=== PATIENT | male | born 1955 | race Caucasian/White ===

== ENCOUNTER 2018-04-09 02:55 | Inpatient (IN) | payer MEDICARE, OTHER ==
[~2018-04-09] VITALS: Ht 177.8 cm; Wt 102.1 kg
--- NOTE | 2018-04-09 03:05 | NUR ---
PT AA/OX4 FROM HOME COMPLAINING OF SOB AND RT SIDE BODY PAIN X4 DAYS. POSITIVE TRIPODING. SKIN PINK, WARM, DRY. NO NASAL FLARING. EQUAL ROUGH ROUNDER MACHINE. EQUAL FACIAL SYMMETRY. ROOM AIR SAT 91%. APPLIED O2 2LPM VIA NC. ALL OTHER VSS. WILL CONTINUE TO MONITOR.
[2018-04-09] MEDS ORDERED: MORPHINE SULFATE INJ 2 MG/ML DISP.SYRIN IV ONE (03:30)
[2018-04-09] MEDS ORDERED: ONDANSETRON HCL/PF 4 MG/2 ML VIAL IVP ONE (03:30)
[2018-04-09] MEDS ORDERED: ONDANSETRON HCL/PF 4 MG/2 ML VIAL ONE (03:36)
[2018-04-09] MEDS ORDERED: MORPHINE SULFATE INJ 4 MG/ML DISP.SYRIN ONE (03:36)
[2018-04-09 03:37] LABS: BASOPHILS % (AUTO) 0.3 % (0.0-2.0); EOSINOPHILS % (AUTO) 1.3 % (0.0-6.0); HEMATOCRIT 41 % (39-51); HEMOGLOBIN 13.7 g/dL (13.5-17.5); LYMPHOCYTES # (AUTO) 2.2 /CMM (0.8-4.8); LYMPHOCYTES % (AUTO) 17.7 % (20.0-44.0); MEAN CORPUSCULAR HEMOGLOBIN 35 PG (26.0-33.0); MEAN CORPUSCULAR HGB CONC 33 g/dl (31.0-36.0); MEAN CORPUSCULAR VOLUME 104 fL (80-96); MONOCYTES # (AUTO) 0.6 /CMM (0.1-1.30); MONOCYTES % (AUTO) 5.3 % (2.0-12.0); NEUTROPHILS # (AUTO) 9.2 /CMM (1.8-8.9); NEUTROPHILS % (AUTO) 75.4 % (43.0-81.0); PLATELET COUNT (AUTO) 250 /CMM (150-450); RDW COEFFICIENT OF VARIATION 13.1 (11.5-15.0); RED BLOOD CELL COUNT(AUTO) 3.97 MIL/uL (4.5-6.0); WHITE BLOOD COUNT (AUTO) 12.2 K/uL (4.3-11.0)
[2018-04-09 03:51] LABS: CALCIUM, SERUM 8.6 mg/dL (8.5-10.1); CARBON DIOXIDE 23 mmol/L (21-32); CHLORIDE 103 mmol/L (98-107); CREATININE 0.9 mg/dL (0.6-1.3); GLUCOSE 142 mg/dL (74-106); POTASSIUM 3.8 mmol/L (3.5-5.1); SODIUM SERUM 137 mmol/L (136-145); UREA NITROGEN, BLOOD 21 mg/dL (7-18)
[2018-04-09 03:59] LABS: TROPONIN I < 0.017 ng/mL (0.00-0.056)
[2018-04-09 04:04] LABS: B-TYPE NATRIURETIC PEPTIDE 124 PG/ML (0-125)
[2018-04-09 04:10] LABS: INR 1.03 (0.87-1.13)
[2018-04-09] MEDS ORDERED: CEFTRIAXONE 1 G VIAL ONE (04:14)
[2018-04-09] MEDS ORDERED: AZITHROMYCIN 500 MG VIAL ONE (04:15)
[2018-04-09] MEDS ORDERED: IPRATROPIUM NEB FS 0.5 MG/2.5 ML AMPUL.NEB NEB SCH (04:30)
[2018-04-09] MEDS ORDERED: Z GUARD REMEDY 2 OZ OINT TP PRN (04:30)
[2018-04-09] MEDS ORDERED: AZITHROMYCIN 500 MG in IV D5W 250 ML IV ONE (04:30)
[2018-04-09] MEDS ORDERED: DEXAMETHASONE SOD PHOSPHATE 10 MG/ML VIAL IV ONE (04:30)
[2018-04-09] MEDS ORDERED: ONDANSETRON HCL/PF 4 MG/2 ML VIAL IVP PRN (04:30)
[2018-04-09] MEDS ORDERED: ALBUTEROL FS 2.5 MG/0.5 ML VIAL.NEB NEB SCH (04:30)
[2018-04-09] MEDS ORDERED: MAGNESIUM HYDROXIDE 30 ML UDC PO PRN (04:30)
[2018-04-09] MEDS ORDERED: CEFTRIAXONE 1GM BAG (ER ONLY) 1 GM/50 ML PIGGYBACK IV ONE (04:30)
[2018-04-09] MEDS ORDERED: ACETAMINOPHEN 325 MG TABLET PO PRN (04:30)
--- NOTE | 2018-04-09 04:43 | NUR ---
REPORT GIVEN TO ANDRÉS MAY.
[2018-04-09] MEDS ORDERED: ENOXAPARIN SODIUM 40 MG/0.4 ML DISP.SYRIN SQ SCH (05:00)
[2018-04-09] MEDS ORDERED: MORPHINE SULFATE INJ 2 MG/ML DISP.SYRIN ONE (05:04)
[2018-04-09 05:15] VITALS: BP 129/73
--- NOTE | 2018-04-09 05:15 | NUR ---
GOVERNMENT AFFAIRS FELLOW ADMITTING NOTES RECEIVED PATIENT VIA [place], ALERT AND ORIENTED X 4, ABLE TO MAKE NEEDS KNOWN. UNABLE TO LIE FLAT AND NOTED WITH SOB ON EXERTION. 02 VIA NC ON 2 L 02 SAT 93%. PATIENT PREFERS TO SIT ON EDGE OF BED FOR RELIEF WHEN SITTING ON EDGE RESPIRATIONS ARE EVEN, PATIENT COMPLAINT OF PAIN TO RIGHT SIDE OF LUNG AREA, BUT WHEN SITTING UP HAS RELIEF. IV SITE TO LEFT HAND #18 G INTACT AND PATENT, NO REDNESS, NO INFILTRATION PRESENT. ATB IV ZITHROMAX CONTINUED TO BE GIVEN AND RUNNING AT THIS TIME. BODY ASSESSMENT DONE SKIN INTACT, BELONGINGS LIST DONE , TOOK BELONGINGS HOME SO PATIENT IS LEFT WITH NO BELONGINGS. MF AWARE OF ADMISSION WILL CONTINUE TO FOLLOW ORDERED. Addendum: 04/09/18 at 0744 by YADIRA MYERS RN SOUND EFFECTS PERSON PLACE SR [id number]
--- NOTE | 2018-04-09 05:21 | NUR ---
PT TRANSP TO TELE UNIT 315 STABLE CONDITION. VSS. NAD
[2018-04-09 05:30] VITALS: BP 129/73
[2018-04-09] MEDS ORDERED: MORPHINE SULFATE INJ 2 MG/ML DISP.SYRIN IV PRN (05:30)
[2018-04-09] MEDS: AZITHROMYCIN 500 MG in IV D5W 250 ML IV SCH (05:47)
[2018-04-09] MEDS: IV NS 0.9% 1,000 ML IV PRN ×2 (06:48→22:22)
[2018-04-09 07:05] LABS: BASOPHILS % (AUTO) 0.1 % (0.0-2.0); EOSINOPHILS % (AUTO) 0.7 % (0.0-6.0); HEMATOCRIT 40 % (39-51); HEMOGLOBIN 13.5 g/dL (13.5-17.5); LYMPHOCYTES # (AUTO) 1.5 /CMM (0.8-4.8); LYMPHOCYTES % (AUTO) 15.1 % (20.0-44.0); MEAN CORPUSCULAR HEMOGLOBIN 35 PG (26.0-33.0); MEAN CORPUSCULAR HGB CONC 34 g/dl (31.0-36.0); MEAN CORPUSCULAR VOLUME 104 fL (80-96); MONOCYTES # (AUTO) 0.7 /CMM (0.1-1.30); MONOCYTES % (AUTO) 7.1 % (2.0-12.0); NEUTROPHILS # (AUTO) 7.7 /CMM (1.8-8.9); PLATELET COUNT (AUTO) 247 /CMM (150-450); RDW COEFFICIENT OF VARIATION 13.2 (11.5-15.0); RED BLOOD CELL COUNT(AUTO) 3.86 MIL/uL (4.5-6.0)
--- NOTE | 2018-04-09 07:20 | NUR ---
TOOL LAPPER HAND CLOSING NOTES PATIENT CURRENTLY REMAINS COMFORTABLE THIS TIME, NOT REQUESTING FOR PAIN MEDICATION AT THIS TIME, PATIENT HAD RELIEF WHEN SITING ON EDGE OF BED, CURRENTLY SITTING ON EDGE OF BED, WITH CALL LIGHT KEPT WITHIN REACH, PATIENT IS ALERT AND ORIENTED X 4 ABLE TO FOLLOW DIRECTION, SAFETY PRECAUTIONS IN PLACE. IV SITE TO LEFT HAND INTACT AND PATENT, IVF FLUID RUNNING ORDERED. PATIENT REMAINS COMFORTABLE AT THIS TIME, ALL NEEDS ATTENDED,WILL ENDORSE TO NEXT SHIFT.
[2018-04-09 07:29] LABS: ALANINE AMINOTRANSFERASE 15 U/L (12-78); ALBUMIN 3.3 g/dL (3.4-5.0); ALKALINE PHOSPHATASE 49 U/L (46-116); ASPARTATE AMINOTRANSFERASE 17 U/L (15-37); BILIRUBIN,TOTAL 0.5 mg/dL (0.2-1.0); CALCIUM, SERUM 8.4 mg/dL (8.5-10.1); CARBON DIOXIDE 21 mmol/L (21-32); CHLORIDE 103 mmol/L (98-107); CREATININE 0.9 mg/dL (0.6-1.3); GLUCOSE 125 mg/dL (74-106); MAGNESIUM 1.8 mg/dL (1.8-2.4); PHOSPHORUS 2.8 mg/dL (2.5-4.9); POTASSIUM 4.1 mmol/L (3.5-5.1); SODIUM SERUM 136 mmol/L (136-145); TOTAL PROTEIN, SERUM 7.4 g/dL (6.4-8.2); UREA NITROGEN, BLOOD 19 mg/dL (7-18)
--- NOTE | 2018-04-09 07:30 | NUR ---
RN MS OPENING NOTES PT RECEIVED SITTING UP ON THE SIDE OF BED LEANING AGAINST TABLE, BED IN LOWEST AND LOCKED POSITION A/O X3, VERBALLY RESPONSIVE, ON TELE MONITOR, NO SIGNS OF DISTRESS NOTED, NO SIGNS OF PAIN, IV PATENT AND INTACT, CALL LIGHT WITHIN REACH, WILL CONTINUE TO MONITOR.
[2018-04-09 07:33] LABS: IRON, SERUM 29 ug/dl (50-175); TOTAL IRON BINDING CAPACITY 241 ug/dl (250-450)
[2018-04-09 07:34] LABS: CHOLESTEROL 148 mg/dL (<200); HDL CHOLESTEROL 35 mg/dL (40-60); LDL 87 mg/dL (0-99); THYROID STIMULATING HORMONE 1.327 uIU/mL (0.358-3.74); TRIGLYCERIDES 155 mg/dL (30-150); TROPONIN I < 0.017 ng/mL (0.00-0.056)
[2018-04-09] MEDS: ALBUTEROL FS 2.5 MG/0.5 ML VIAL.NEB NEB SCH ×5 (07:37→22:42)
[2018-04-09] MEDS: IPRATROPIUM NEB FS 0.5 MG/2.5 ML AMPUL.NEB NEB SCH ×5 (07:37→22:42)
[2018-04-09 08:00] VITALS: BP 106/65
[2018-04-09] MEDS: ASPIRIN EC 81 MG TABLET.DR PO SCH (08:12)
[2018-04-09] MEDS: PANTOPRAZOLE 40 MG TABLET.DR PO SCH (08:12)
[2018-04-09] MEDS: HYDROCODONE/APAP 5/325MG 1 EACH TABLET PO PRN ×3 (08:31→19:48)
[2018-04-09 16:00] VITALS: BP 110/59
--- NOTE | 2018-04-09 18:00 | NUR ---
RN CLOSING NOTES PT SITTING IN BED AT LOWEST AND LOCKED POSITION, NO S/S OF DISTRESS OR PAIN NOTED AT THIS TIME, PT IS A/O X4, VS STABLE, SAFETY PRECAUTIONS IN PLACE, IV SITE PATENT AND INTACT, IVF RUNNING ORDERED, FAMILY AT BEDSIDE, CALL LIGHT WITHIN REACH AND WILL CONTINUE TO MONITOR AND HANDOFF TO NIGHT NURSE.
--- NOTE | 2018-04-09 19:30 | NUR ---
RN MS OPENING NOTES RECEIVED PATIENT SITTING IN CHAIR BY BEDSIDE,AWAKE ALERT AND ORIENTED X 4, RESPIRATIONS EVEN AND UNLABORED WITH EQUAL RISE AND FALL OF CHEST. CALL LIGHT KEPT WITHIN REACH. PER PATIENT SITTING UP IN CHAIR PROVIDES THE MOST RELIEF. NO SOB PRESENT AT THIS TIME. PER PATIENT REMAINS COMFORTABLE AT THIS TIME MADE AWARE IF IN PAIN MEDICATION IS AVAILABLE. MADE AWARE OF IMPORTANCE OF 02 , CURRENTLY ON 02 2L VIA NC. IV SITE TO LEFT HAND #18 INTACT AND PATENT , NO REDNESS NO INFILTRATION PRESENT IVF RUNNING ORDERED. FLUIDS OFFERED TOLERATED, ALL NEEDS ATTENDED AT THIS TIME, ORIENTED TO STAFF AND CALL LIGHT, REMINDED PATIENT TO UTILIZE CALL LIGHT FOR ASSISTANCE WHEN GETTING UP. ALL NEEDS ATTENDED AT THIS TIME.
--- NOTE | 2018-04-09 19:35 | NUR ---
Patient is alert,lives locally with family. He is ambulatory and independent with adl's. He has good family support. No dc planning needs identified at this time. Family will provide ride when discharge. Addendum: 04/09/18 at 1939 by DAVID MARSHALL RN Amended: Links added.
--- NOTE | 2018-04-09 19:48 | NUR ---
RN MS NOTES PATIENT COMPLAINT OF PAIN TO RIGHT SIDE LUNG TORSO AREA COMPLAINT OF SUDDEN PAIN DURING SUDDEN MOVEMENTS 01/24 REQUESTING FOR PAIN MEDICATION , PRN NORCO OFFERED, AGREED TO TAKE,PRN GIVEN ORDERED, VITAL SIGNS ASSESSED B/P WITHIN NORMAL LIMITS 123/66. HR 90. 02 SAT 91-93% RESP.18 ON 02 2 L. NO SOB PRESENT AT THIS TIME. WILL CONTINUE TO MONITOR EFFECTIVENESS OF PAIN MEDICATION.
[2018-04-09 20:00] VITALS: BP 123/66
--- NOTE | 2018-04-09 20:00 | NUR ---
RN MS NOTES 02 SAT CURRENTLY AT 97%.
[2018-04-10] MEDS: HYDROCODONE/APAP 5/325MG 1 EACH TABLET PO PRN (02:26)
--- NOTE | 2018-04-10 02:30 | NUR ---
RN MS NOTES PATIENT COMPLAINT OF PAIN 10/10 TO RIGHT SIDE TORSO AREA, REQUESTING FOR PAIN MEDICATION. PRN NORCO GIVEN ORDERED, PATIENT CURRENTLY SITTING ON EDGE OF BED THIS PROVIDES THE MOST RELIEF, LOW BED AND LOCKED, CALL LIGHT KEPT WITHIN REACH, WILL CONTINUE TO MONITOR FOR EFFECTIVENESS.
[2018-04-10] MEDS: IPRATROPIUM NEB FS 0.5 MG/2.5 ML AMPUL.NEB NEB SCH ×6 (03:26→23:55)
[2018-04-10] MEDS: ALBUTEROL FS 2.5 MG/0.5 ML VIAL.NEB NEB SCH ×6 (03:26→23:55)
[2018-04-10] MEDS: AZITHROMYCIN 500 MG in IV D5W 250 ML IV SCH (04:09)
[2018-04-10] MEDS: CEFTRIAXONE 1 G in IV D5W 50 ML IV SCH (05:32)
[2018-04-10 06:13] LABS: CREATININE 0.9 mg/dL (0.6-1.3); PHOSPHORUS 3.2 mg/dL (2.5-4.9); POTASSIUM 4.3 mmol/L (3.5-5.1)
[2018-04-10 06:37] LABS: BASOPHILS % (AUTO) 0.3 % (0.0-2.0); EOSINOPHILS % (AUTO) 1.6 % (0.0-6.0); HEMATOCRIT 38 % (39-51); HEMOGLOBIN 12.8 g/dL (13.5-17.5); LYMPHOCYTES # (AUTO) 1.9 /CMM (0.8-4.8); LYMPHOCYTES % (AUTO) 22.5 % (20.0-44.0); MEAN CORPUSCULAR HEMOGLOBIN 35 PG (26.0-33.0); MEAN CORPUSCULAR HGB CONC 34 g/dl (31.0-36.0); MEAN CORPUSCULAR VOLUME 105 fL (80-96); MONOCYTES # (AUTO) 0.7 /CMM (0.1-1.30); MONOCYTES % (AUTO) 7.9 % (2.0-12.0); NEUTROPHILS # (AUTO) 5.8 /CMM (1.8-8.9); NEUTROPHILS % (AUTO) 67.7 % (43.0-81.0); PLATELET COUNT (AUTO) 225 /CMM (150-450); RED BLOOD CELL COUNT(AUTO) 3.65 MIL/uL (4.5-6.0); WHITE BLOOD COUNT (AUTO) 8.6 K/uL (4.3-11.0)
--- NOTE | 2018-04-10 06:40 | NUR ---
RN MS CLOSING NOTES PATIENT IS AWAKE ALERT AND ORIENTED X4 STATES HE FEELS BETTER THAN YESTERDAY, PATIENT WAS ABLE TO SLEEP LYING DOWN, BUT ALSO HAS RELIEF SITTING ON CHAIR OR EDGE OF BED, NO RESPIRATORY DISTRESS PRESENT, CURRENTLY ON 02 2L VIA NC AND TOLERATING WELL. PAIN MEDICATION WAS EFFECTIVE WHEN GIVEN, ANTIBIOTICS GIVEN ORDERED, IVF RUNNING ORDERED, IV SITE TO LEFT HAND INTACT AND PATENT, NO REDNESS, NO INFILTRATION PRESENT. ALL NEEDS ATTENDED, PATIENT REMAINS COMFORTABLE AT THIS TIME, SAFETY PRECAUTIONS IN PLACE, CALL LIGHT KEPT WITHIN REACH, TOILETING OFFERED, WILL CONTINUE TO MONITOR AND ENDORSE TO NEXT SHIFT.
--- NOTE | 2018-04-10 07:30 | NUR ---
RN OPENING NOTES PATIENT IS IN BED AT LOWEST AND LOCKED POSITION SIDE RAILS UP X2, A/O X4, NO S/S OF DISTRESS OR PAIN NOTED, VS STABLE, MENTIONED HE FEELS BETTER THAT YESTERDAY, FEELS BETTER WHEN SITTING UP AND LEANING AGAINST DESK, ON O2 VIA NASAL CANNULA 2L, IV PATENT AND INTACT WITH IVF RUNNING ORDERED, COMFORTABLE AT THIS TIME, CALL LIGHT WITHIN REACH AND WILL CONTINUE TO MONITOR
[2018-04-10 08:00] VITALS: BP 109/69
[2018-04-10] MEDS: PANTOPRAZOLE 40 MG TABLET.DR PO SCH (08:14)
[2018-04-10] MEDS: ASPIRIN EC 81 MG TABLET.DR PO SCH (08:14)
[2018-04-10] MEDS: ENOXAPARIN SODIUM 40 MG/0.4 ML DISP.SYRIN SQ SCH (08:16)
[2018-04-10 16:00] VITALS: BP 130/69
[2018-04-10] MEDS ORDERED: SOD FERRIC GLUC 125 MG in IV NS 0.9% 100 ML IV SCH (16:30)
[2018-04-10] MEDS: MULTIVITAMINS,THERAGRAN 1 UDTAB TABLET PO SCH (16:45)
[2018-04-10] MEDS: LACTOBACILLUS RHAMNOSUS GG 1 EACH CAP.SPRINK PO SCH (16:45)
--- NOTE | 2018-04-10 18:00 | NUR ---
RN CLOSING NOTES PT SITTING UP ON THE EDGE OF THE BED AT LOWEST AND LOCKED POSITION WITH SIDE RAILS UP X2, A/O X4, NO S/S OF DISTRESS OR PAIN NOTED, VS STABLE, LEFT HAND IV PATENT AND INTACT RUNNING IVF ORDERED, CURRENTLY ON O2 2L VIA NASAL CANNULA, PATIENT NEEDS ATTEND, CALL LIGHT WITHIN REACH AND WILL ENDORSE TO NIGHT NURSE
--- NOTE | 2018-04-10 19:15 | NUR ---
PATIENT IS IN BED, A/O X4, NO S/S OF DISTRESS OR PAIN NOTED, VS STABLE, MENTIONED HE FEELS BETTER THAT YESTERDAY, FEELS BETTER WHEN SITTING UP, ON O2 VIA NASAL CANNULA 2L,IV PATENT AND INTACT H/L, CALL LIGHT WITHIN REACH. WILL CONTINUE TO MONITOR
[2018-04-10 20:00] VITALS: BP 134/72
[2018-04-11] MEDS: IPRATROPIUM NEB FS 0.5 MG/2.5 ML AMPUL.NEB NEB SCH ×4 (03:33→15:31)
[2018-04-11] MEDS: ALBUTEROL FS 2.5 MG/0.5 ML VIAL.NEB NEB SCH ×4 (03:33→15:31)
[2018-04-11] MEDS: CEFTRIAXONE 1 G in IV D5W 50 ML IV SCH (05:11)
--- NOTE | 2018-04-11 07:09 | NUR ---
RN CLOSING NOTES PT IN BED. BED IN LOWEST AND LOCKED POSITION WITH SIDE RAILS UP X2, PT A/O X4, NO S/S OF DISTRESS OR PAIN NOTED, VS STABLE, LEFT HAND IV PATENT AND INTACT H/P, PATIENT NEEDS ATTEND, CALL LIGHT WITHIN REACH. WILL ENDORSE TO NEXT SIFT NURSE FOR JESIKA.
[2018-04-11 07:10] LABS: BASOPHILS % (AUTO) 0.2 % (0.0-2.0); EOSINOPHILS % (AUTO) 2.1 % (0.0-6.0); HEMATOCRIT 35 % (39-51); LYMPHOCYTES # (AUTO) 1.8 /CMM (0.8-4.8); LYMPHOCYTES % (AUTO) 19.8 % (20.0-44.0); MEAN CORPUSCULAR HEMOGLOBIN 35 PG (26.0-33.0); MEAN CORPUSCULAR HGB CONC 34 g/dl (31.0-36.0); MEAN CORPUSCULAR VOLUME 104 fL (80-96); MONOCYTES % (AUTO) 11.1 % (2.0-12.0); NEUTROPHILS # (AUTO) 5.9 /CMM (1.8-8.9); NEUTROPHILS % (AUTO) 66.8 % (43.0-81.0); PLATELET COUNT (AUTO) 253 /CMM (150-450); RDW COEFFICIENT OF VARIATION 13.2 (11.5-15.0); WHITE BLOOD COUNT (AUTO) 8.9 K/uL (4.3-11.0)
--- NOTE | 2018-04-11 07:25 | NUR ---
RN OPENING NOTES RECEIVED PT. IN BED SITTING UP. A&OX4. BREATHING UNLABORED, AND EVENLY ON ROOM AIR. IV ACCESS IS INTACT AND PATENT NO SOB. NO S/S OF ACUTE DISTRESS. PT. DENIES PAIN. BED IS IN LOWEST, AND LOCKED POSITION. 2 SIDE RAILS UP, AND INSTRUCTED PT. TO USE CALL LIGHT FOR ASSISTANCE. ALL NEEDS MET. WILL CONTINUE TO ASSESS AND MONITOR.
[2018-04-11 07:27] LABS: CALCIUM, SERUM 8.9 mg/dL (8.5-10.1); CREATININE 0.8 mg/dL (0.6-1.3); MAGNESIUM 2.2 mg/dL (1.8-2.4); PHOSPHORUS 3.3 mg/dL (2.5-4.9); POTASSIUM 3.9 mmol/L (3.5-5.1)
[2018-04-11 08:00] VITALS: BP 124/68
[2018-04-11] MEDS: PANTOPRAZOLE 40 MG TABLET.DR PO SCH (08:14)
[2018-04-11] MEDS: ASPIRIN EC 81 MG TABLET.DR PO SCH (08:15)
[2018-04-11] MEDS: LACTOBACILLUS RHAMNOSUS GG 1 EACH CAP.SPRINK PO SCH (08:16)
[2018-04-11] MEDS: MULTIVITAMINS,THERAGRAN 1 UDTAB TABLET PO SCH (08:16)
[2018-04-11] MEDS: ENOXAPARIN SODIUM 40 MG/0.4 ML DISP.SYRIN SQ SCH (08:23)
[2018-04-11] MEDS ORDERED: AZITHROMYCIN 250 MG TABLET PO SCH (09:00)
[2018-04-11] MEDS ORDERED: LEVO750T21 PO (15:33)
--- NOTE | 2018-04-11 17:29 | NUR ---
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 PT. LEFT IN PRIVATE CAR WITH . DISCHARGE INSTRUCTIONS WERE PROVIDED WITH EDUCATION. PT. SIGNED DISCHARGE PAPERS. BELONGINGS LIST WAS CHECKED AND SIGNED. ID BAND AND IV WAS REMOVED WITHOUT COMPLICATIONS. PRESCRIPTION WAS GIVEN WITH EDUCATION AND PT. VERBALIZED UNDERSTANDING. ALL QUESTIONS ANSWERED. PT. WAS ASSISTED TO THE CAR IN A WHEELCHAIR, AND WAS ABLE TO AMBULATE WITHOUT COMPLICATIONS.
== END 2018-04-11 17:00 | disposition home or self-care (01) | DRG 193 ==
LOC: ER 02:57 → TELE 04:15 → MED 15:51
PROVIDERS: ADMIT Nurse Practitioner Acute Care; ATTEND Internal Medicine
DX: J15.9 Unspecified bacterial pneumonia (principal); J96.01 Acute respiratory failure with hypoxia; I70.0 Atherosclerosis of aorta; E66.9 Obesity, unspecified; E78.5 Hyperlipidemia, unspecified; Z82.49 Family history of ischemic heart disease and other diseases of the circulatory system; Z68.32 Body mass index [BMI] 32.0-32.9, adult; I35.0 Nonrheumatic aortic (valve) stenosis; I77.810 Thoracic aortic ectasia
CPT/HCPCS: 36415; 71045-TC; 80048-TC; 80053-TC; 80061-TC; 83540-TC; 83605-TC; 83735-TC; 83880; 84100-TC; 84443-TC; 84484-TC; 85025-TC; 85730-TC; 87040-TC; 87070-TC; 87081-TC; 93307-TC; A4216; A4606; J0456; J0696; J1650; J2270; J2405; J2916; J7030; J7060; Z7610